=== PATIENT | male | born 1960 ===

== ENCOUNTER 2023-05-27 08:13 | Day surgery (SDC) | payer OTHER ==
[~2023-05-27] VITALS: Ht 172.7 cm; Wt 75.0 kg
[2023-05-27] MEDS ORDERED: OMEGA-3 1000 MG1 CAP PO (09:03)
[2023-05-27] MEDS ORDERED: VITAMIND3 5000 PO (09:03)
[2023-05-27] MEDS ORDERED: GLUCOSAMINE & C1 CA2 PO (09:04)
[2023-05-27] MEDS ORDERED: MULTIPLE VITAMI1 CAP PO (09:04)
--- NOTE | 2023-05-27 09:07 | NUR ---
VSS, reviewed allergies/meds/history, reviewed and signed consents and no questions, to place PIV and await procedure. Pt reports bowels are liquid and a darker yellow, no issues with prep.
[2023-05-27 09:09] VITALS: BP 110/75; PULSE 61; TEMP 97.6
[2023-05-27 10:25] VITALS: BP 112/77; PULSE 72; TEMP 97.4
--- NOTE | 2023-05-27 10:25 | NUR ---
The patient arrived back to [facility] from the endoscopy suite. The patient appears alert and orientd and ambulated from the cart to the recliner in his room with the stand by assistance of two nurses. Post procedure vital signs were started at this time. Call light is within reach. Waqrm blanket provided. The patient agrees to try some coffee and a muffin. The patient denies any further needs at this time. The patient's was called to let her know he will be ready for discharge soon, she let the nurse know that their son John will be picking the patient up and she is going to let him know.
[2023-05-27 10:40] VITALS: BP 108/71; PULSE 66
--- NOTE | 2023-05-27 10:41 | NUR ---
The patient has finsihed his muffin and requests a second one at this time. Vital signs appear stable. Call light remains within reach.
[2023-05-27 10:50] VITALS: BP 126/80; PULSE 74
--- NOTE | 2023-05-27 10:50 | NUR ---
Discharge instructions were reviewed with the patient at this time. He verbalized understanding and has no questions for the nurse at this time. The patient's IV to his right anecubital was removed and a pressure dressing was applied to the site. The nurse instructed the patient to get dressed and notify the staff when he is ready to be escorted out and his son has arrived.
--- NOTE | 2023-05-27 11:12 | NUR ---
The patient was escorted out via wheelchair to a private vehicle by YVON Arnold. The patient's belongings and discharge paperwork were sent with him. The patient's son is present to drive him home.
== END 2023-05-27 11:12 | disposition home or self-care (01) ==
LOC: SDCO 08:13
DX: Z12.11 Encounter for screening for malignant neoplasm of colon (principal); K57.30 Diverticulosis of large intestine without perforation or abscess without bleeding; Z80.0 Family history of malignant neoplasm of digestive organs
CPT/HCPCS: J2704; J7120